=== PATIENT | female | born 1940 | race Hispanic/Latino ===

== ENCOUNTER → 2018-05-10 | Outpatient (CLI) | payer OTHER ==
[~2018-05-10] MED LIST: ACET-2900 PO; ASCO-360 PO; ASPI-555 PO; ATOR-2 PO; CHOL100018 PO; FERR325T22 PO; LEVO137T24 PO; METO25TA6 PO; PANT40TA PO; SEVE800T7 PO; SIME80TA12 PO; ZINC PO; ZINC56.7 TP; [UNRECOGNIZED DRUG - CODE] MC
== END | disposition home or self-care (01) ==
LOC: SHCH 11:38
PROVIDERS: ATTEND Internal Medicine Cardiovascular Disease
DX: I73.9 Peripheral vascular disease, unspecified (principal)
CPT/HCPCS: 93922